=== PATIENT | male | born 1945 | race Asian ===

== ENCOUNTER 2017-04-05 11:23 | Emergency (ER) | payer SELFPAY ==
[~2017-04-05] VITALS: Ht 177.8 cm; Wt 77.1 kg
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
--- NOTE | 2017-04-05 12:02 | NUR ---
PT TO [facility]AN
--- NOTE | 2017-04-05 13:38 | NUR ---
Patient discharged to home in stable condition. Written and verbal after care instructions given. Patient verbalizes understanding of instruction.
[2017-04-05 13:39] VITALS: BP 142/88
== END 2017-04-05 13:39 | disposition home or self-care (01) ==
LOC: ER 11:25
DX: S00.83XA Contusion of other part of head, initial encounter (principal); I10 Essential (primary) hypertension; E78.00 Pure hypercholesterolemia, unspecified; M10.9 Gout, unspecified; Y04.8XXA Assault by other bodily force, initial encounter; Y93.89 Activity, other specified; Y92.89 Other specified places as the place of occurrence of the external cause; Y99.8 Other external cause status
CPT/HCPCS: 70486-TC; A4606; Z7610